=== PATIENT | female | born 2000 | race Hispanic/Latino ===

== ENCOUNTER → 2022-05-01 | Emergency (ER) | payer MEDICAID ==
[~2022-05-01] VITALS: Ht 154.9 cm; Wt 75.0 kg
[2022-05-01] VITALS (8 sets, daily range): BP systolic 85–111; BP diastolic 59–71
[~2022-05-01] MED LIST: CLARITIN10 M1 PO; FLUARIX QUADRIV1 INJ IM; GARDASIL IM; HAVRIX720 UNI1 IM; MOTRIN400 MG PO; NAPROSYN250 MG PO; NAPROSYN375 MG PO; NAPROXEN500 MG PO; NASONEX50 MCG/AC NAB; PROVERA10 MG PO; SINGULAIR4 MG PO
[2022-05-01 02:51] LABS: BASO% 0.4 % (0-3); EOS% 3.3 % (0-8); IMMATURE GRANULOCYTES 0.1 % (0.0-5.0); LYMPH% 37.5 % (15-41); MEAN CORPUSCULAR HGB 31.4 pG CALC (26.0-32.0); MEAN CORPUSCULAR HGB CONC 34.2 g/dL CAL (32.0-36.0); NEUT# 3.65 thou/uL (2.00-7.15); NEUT% 49.7 % (42-76); RED BLOOD COUNT 4.58 mill/uL (4.20-5.60); RED CELL DISTRI WIDTH 11.6 % (11.5-15.5)
[2022-05-01 02:58] LABS: HEMATOCRIT 42.1 % (37.0-47.0); HEMOGLOBIN 14.4 g/dl (12.0-16.0); MEAN CELL VOLUME 91.9 fL CALC (80.0-100.0)
[2022-05-01 03:01] LABS: ALBUMIN 4.8 g/dL (3.2-5.0); ALKALINE PHOSPHATASE 88 u/l (38-126); ANION GAP 12 (6-22 (CALC)); BUN 12 mg/dL (7-17); BUN/CREATININE RATIO 14 (12-20 (CALC)); CARBON DIOXIDE 27 mmol/l (22-30); CHLORIDE 104 mmol/l (95-108); CREATININE 0.9 mg/dL (0.5-1.0); GFR FOR AFR.AMER. > 60 ML/MIN (>=60 (CALC)); GFR OTHER RACES > 60 ML/MIN (>=60 (CALC)); POTASSIUM 3.5 mmol/l (3.5-5.1); SODIUM 139 mmol/l (137-146); TOTAL PROTEIN 8.1 g/dL (6.3-8.2)
[2022-05-01 03:02] LABS: BILIRUBIN, TOTAL 0.3 mg/dL (0.02-1.3); SGOT/AST 47 u/l (14-36)
== END ==
LOC: ED 02:08
PROVIDERS: Emergency Medicine
DX: R07.89 Other chest pain (principal)